=== PATIENT | female | born 1965 | race Caucasian/White ===

== ENCOUNTER 2024-08-31 13:52 | Outpatient (CLI) | payer OTHER, SELFPAY ==
--- NOTE | ~2024-08-31 | DEXA_ITS ---
Bone Density Report Name: JADE CABRERA Age: 59 Sex: Female Ethnicity: White Date of : 1965 Indication: postmenopausal; screening for osteoporosis; height loss; Referring Provider: DENNY, YIFAN Rios Study: Bone densitometry was performed. Exam Date: August 31, 2024 Accession number: [id number] Bone Density: Region BMD T-score Z-score Classification AP Spine(L1-L4) 0.825 -2.0 -0.5 Osteopenia Femoral Neck (Left) 0.537 -2.8 -1.5 Osteoporosis Total Hip (Left) 0.681 -2.1 -1.1 Osteopenia Femoral Neck (Right) 0.567 -2.5 -1.2 Osteoporosis Total Hip (Right) 0.668 -2.2 -1.2 Osteopenia Total Hip Mean 0.675 -2.2 -1.2 Osteopenia World Health Organization criteria for BMD impression classify patients as: Normal (T-score at or above -1.0), Osteopenia (T-score between -1.0 and -2.5), or Osteoporosis (T-score at or below -2.5). 10-year Fracture Risk: FRAX not reported because: Some T-score for Spine Total or Hip Total or Femoral Neck at or below -2.5 Clinical Information Provided by Patient: Smokes Has used the following medications: Vitamin D, Calcium Patient maximum height was 66 Menopause Age: 38 Onset of menses at age 10 Number of children 2 Impression: The patient has osteoporosis, based on the Left Femoral Neck T-score. The patient has risk factors, including: smoking. Discussion: INCREASED RISK OF FRACTURE. BONE DENSITY IS UNDESIRABLY LOW AT ONE OR MORE SKELETAL SITES, CONSISTENT WITH POSTMENOPAUSAL OSTEOPOROSIS. This patient's lowest T-score meets the World Health Organization's (WHO) criteria for osteoporosis at one or more sites (T-score -2.5 or below). In untreated patients, the risk of osteoporotic fracture increases approximately two-fold for each 1.0 SD decrease in T-score. Low bone density is not the only risk factor for fracture; also consider factors such as patient's age, frailty or poor health, risk of falling, risk of injury, previous osteoporotic fracture, family history of osteoporosis, cigarette smoking, low body weight, etc. Not everyone with low bone mineral density has osteoporosis; osteomalacia and other metabolic bone disorders should also be considered. Patients who have osteoporosis should be evaluated for specific diseases and conditions (secondary causes) that may cause or contribute to bone loss. The [place] Association of Clinical Endocrinologists (AACE) and National Osteoporosis Foundation (NOF) recommend pharmacologic intervention for all postmenopausal women whose T-score is in this range. The patient should follow a healthful lifestyle (good nutrition with adequate calcium and vitamin D, and appropriate weight-bearing exercise). Follow-Up: Consider a repeat BMD and Vertebral Fracture Assessment (VFA) exam in 2 years or sooner if medically necessary, to reassess this patient's status. Reported by: MILADIS on 08/31/2024 2:49:00 PM. Reviewed, dictated and finalized at location A.
--- OUTSIDE RECORDS SUMMARY | 2024-08-31 14:06 | XMS_ITS | Clinical Summary ---
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 Ac tive folic acid (FOLVITE) 400 mcg Tablet Take 400 mcg by mouth daily. Active ascorbic acid, vitamin C, (VITAMIN C) 500 mg tablet Take 500 mg by mouth daily. Active vitamin B complex-vitamin C-folic acid 1 mg Capsule Take 1 Capsule by mouth daily. Active fluconazole (DIFLUCAN) 150 mg tablet Take 1 Tablet (150 mg) by mouth daily. 1 Tablet 1 12/28/19 24 Active celecoxib (CeleBREX) 100 mg capsuleIndications :Primary osteoarthritis involving multiple joints Take 1 Capsule (100 mg) by mouth 2 times daily. 60 Capsule 5 02/29/20 24 Active rosuvastatin (CRESTOR) 40 mg tabletIndications: Mixed hyperlipidemia Take 1 Tablet (40 mg) by mouth daily. 90 Tablet 02/29/20 24 Active sertraline (ZOLOFT) 100 mg tabletIndications: Situational depression Take 1 Tablet (100 mg) by mouth daily. 90 Tablet 02/29/20 24 Active methocarbamoL (ROBAXIN) 500 mg tabletIndications: Primary osteoarthritis involving multiple joints Take 1 Tablet (500 mg) by mouth 3 times daily. 30 Tablet 02/29/20 24 Active amLODIPine (NORVASC) 5 mg tabletIndications: Benign hypertension Take 1 Tablet (5 mg) by mouth daily. 90 Tablet 08/22/19 25 Active cetirizine (ZyrTEC) 10 mg tablet Take 1 Tablet (10 mg) by mouth daily. 90 Tablet 08/22/19 25 Active fluticasone propionate (FLONASE) 50 mcg/spray [place], Suspension nasal inhalerIndications :Left ear pain Administer 2 Sprays in each nostril daily. 32 Gram 08/22/19 25 Active doxycycline hyclate (VIBRAMYCIN) 100 mg tabletIndications: Acute non-recurrent maxillary sinusitis Take 1 Tablet (100 mg) by mouth 2 times daily for 10 days. 20 Tablet 08/22/19 25 025 Active fluticasone propionate (FLONASE) 50 mcg/spray [place], Suspension nasal inhalerIndications :Left ear pain,Dizziness Administer 2 Sprays in each nostril daily. 16 Gram 07/18/19 24 025 Discontin ued(Reord er) cetirizine (ZyrTEC) 10 mg tablet Take 1 Tablet (10 mg) by mouth daily. 90 Tablet 12/07/19 24 025 Discontin ued(Reord er) amLODIPine (NORVASC) 5 mg tabletIndications: Benign hypertension Take 1 Tablet (5 mg) by mouth daily. 90 Tablet 05/23/19 25 025 Discontin ued(Reord er) Active Problems Problem Noted Date Diagnosed Date Tobacco dependence 01/18/2024 Benign hypertension 07/18/2023 Mixed hyperlipidemia 07/18/2023 Osteoarthritis 07/18/2023 DDD (degenerative disc disease), cervical 2023 DDD (degenerative disc disease), thoracic 2023 DDD (degenerative disc disease), lumbar 07/18/19 Situational depression 07/18/2023 Encounters Date Type Department Care Team Description 08/21/2024 3:00 PM CDT Office Visit [facility] [address] [place] [address] Suzette Henriquez, FRANCISCO Acute non-recurrent maxillary sinusitis (Primary Dx); Benign hypertension; Left ear pain 07/17/2024 External Device Data STL ABSTRACTION Provider, Abstract 07/04/2024 External Device Data STL ABSTRACTION Provider, Abstract 06/27/2024 External Device Data STL ABSTRACTION Provider, Abstract 06/26/2024 External Device Data STL ABSTRACTION Provider, Abstract 06/25/2024 External Device Data STL ABSTRACTION Provider, Abstract 06/23/2024 External Device Data STL ABSTRACTION Provider, Abstract 06/23/2024 External Device Data STL ABSTRACTION Provider, Abstract 06/20/2024 External Device Data STL ABSTRACTION Provider, Abstract 06/06/2024 External Device Data STL ABSTRACTION Provider, Abstract 06/06/2024 External Device Data STL ABSTRACTION Provider, Abstract from Last 3 Months Family History Medical History Relation Name Comments Other Daughter degenerated dis c disease Leukemia Father Other Mother open heart surg elizabeth complications Other Sister 1 open heart surg elizabeth- aorta Seizures Sister 2 COPD Sister 3 Heart Attack Son Other Son open heart surg elizabeth Relation Name Status Comments Daughter Alive Father Maternal Grandfather Maternal Grandmother Mother Paternal Grandfather Paternal Grandmother Sister 1 Alive Sister 2 Alive Sister 3 Alive Son Alive Social History Tobacco Use Types Packs/Day Years Used Date Smoking Tobacco: Every Day Cigarettes 1 45.4 Started: 04/18/1979 Smokeless Tobacco: Never Tobacco Cessation:Ready to Q uit: No; Counseling Given: Yes Alcohol Use Standard Drinks/Week Comments Yes 6 (1 standard drink = 0.6 oz pur e alcohol) Comments No Sex and Gender Information Value Date Recorded Sex Assigned at Not on file 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 Gender Identity Not on file Sexual Orientation Not on file Last Filed Vital Signs Vital Sign Reading Time Taken Comments Blood Pressure 122/78 08/21/2024 2:55 PM CDT Pulse 80 08/21/2024 2:55 PM CDT Temperature 36.7 C (98.1 F) 08/21/2024 2:55 PM CDT Respiratory Rate 18 08/21/2024 2:55 PM CDT Oxygen Saturation 98% 08/21/2024 2:55 PM CDT Inhaled Oxygen Concentration - - Weight 64.9 kg (143 lb) 08/21/2024 2:55 PM CDT Height 165.1 cm (5' 5 ) 08/21/2024 2:55 PM CDT Body Mass Index 23.8 08/21/2024 2:55 PM CDT Plan of Treatment Upcoming Encounters Date Type Department Care Team (Late st Contact Info) Description 09/18/2024 8:20 AM CDT Office Visit [facility] [place] [address] [address] 09/26/2024 2:00 PM CDT Office Visit [facility] at [facility] [place] [address] [place] [address] Brandi Knott MD [address] [place] [address] Health Maintenance Due Date Last Done Comments DTAP/TDAP/TD VACCINES (1 - Tdap) 1982 HPV/Cotest (21-29) 02/15/1984 CERVICAL CANCER SCREENING 1993 HPV/Cotest (30-65) 1993 PAP SMEAR 1993 BREAST CANCER SCREENING 2003 COLORECTAL SCREENING 02/15/2008 Colorectal Cancer Screening 02/15/2008 FIT-DNA Q 3 years 02/15/2008 FIT/FOBT Q 1 year 02/15/2008 Flex Sig/CT Colonography Q 5 years 02/15/2008 Lung Cancer Screening 2013 ZOSTER VACCINE (1 of 2) 2013 INFLUENZA VACCINE (#1) 2023 Preventative Visit- Commercial 04/18/2024 RSV VACCINE (60+ or ) (1 - 1-dose 75+ series) [address]38 [address] [place] [address] [place] [id number] 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
== END 2024-08-31 13:53 | disposition home or self-care (01) ==
LOC: ANHIMG 14:03
PROVIDERS: PCP Internal Medicine; Visit Provider Internal Medicine
DX: M81.0 Age-related osteoporosis without current pathological fracture (principal); M85.89 Other specified disorders of bone density and structure, multiple sites; Z78.0 Asymptomatic menopausal state; F17.200 Nicotine dependence, unspecified, uncomplicated
CPT/HCPCS: 77080

== ENCOUNTER 2024-12-18 15:52 | Outpatient (CLI) | payer OTHER, SELFPAY ==
--- NOTE | ~2024-12-18 | XR_ITS ---
EXAMINATION: XR foot RT min 3V DATE: 12/18/2024 16:13 INDICATION: Right foot pain TECHNIQUE: Dorsoplantar, oblique and lateral views of the right foot were obtained. COMPARISON: None. FINDINGS: Alignment is normal. No fracture. Mild osteoarthritis at the first metatarsophalangeal and a few tarsometatarsal and interphalangeal joints. Soft tissues are unremarkable. IMPRESSION: 1. No acute osseous abnormality. Reviewed, dictated and finalized at location A.
--- OUTSIDE RECORDS SUMMARY | 2024-12-18 14:30 | XMS_ITS | Encounter Summary ---
Author Organization [facility] Address [address] [place] [address] Care Team Providers Care Curriculum Assistant Name Role Phone Brandi Knott MD Primary Care Provider [phone] Reason for Visit * Reason Comments Foot Injury Patient fell down th e stairs yesterday and hurt foot. Encounter Details Date Type Department Care Team (Late st Contact Info) Description 12/18/2024 2:30 PM CDT Office Visit [facility] [employer] [place] [address] [place] [address] Brandi Knott MD [address] [place] [address] Right foot pain (Primary Dx); Age-related osteoporosis without current pathological fracture Social History Tobacco Use Types Packs/Day Years Used Date Smoking Tobacco: Every Day Cigarettes 1 45.7 Started: 04/18/1979 Smokeless Tobacco: Never Alcohol Use Standard Drinks/Week Comments Yes 6 (1 standard drink = 0.6 oz pur e alcohol) Comments No Sex and Gender Information Value Date Recorded Sex Assigned at Not on file 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 Gender Identity Not on file Sexual Orientation Not on file documented as of this encounter Last Filed Vital Signs Vital Sign Reading Time Taken Comments Blood Pressure 124/82 12/18/2024 2:29 PM CDT Pulse 86 12/18/2024 2:29 PM CDT Temperature - - Respiratory Rate 18 12/18/2024 2:29 PM CDT Oxygen Saturation 95% 12/18/2024 2:29 PM CDT Inhaled Oxygen Concentration - - Weight 64.2 kg (141 lb 9.6 oz) 12/18/2024 2:29 P M CDT Height 162.6 cm (5' 4) 12/18/2024 2:29 PM CDT Body Mass Index 24.31 12/18/2024 2:29 PM CDT documented in this encounter Plan of Treatment Scheduled Orders Name Type Priority Associated Diagnoses Orde r Schedule XR FOOT 3+ VW RIGHT Imaging Routine Right foot pain 1 Occurrences starting 12/18/2024 until 12/18/2025 documented as of this encounter Visit Diagnoses Diagnosis Right foot pain- Primary Pain in limb Age-related osteoporosis without current pathological fracture Senile osteoporosis documented in this encounter Care Teams Curriculum Assistant Relationship Specialty Start Date End Date Brandi Knott MD [address] [place] [address] PCP - General Internal Medicine 09/20/23 documented as of this encounter
--- OUTSIDE RECORDS SUMMARY | 2024-12-18 15:59 | XMS_ITS | Clinical Summary ---
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 Active celecoxib (CeleBREX) 100 mg capsuleIndications :Primary [...] times daily. 30 Tablet 02/29/20 24 Active cetirizine (ZyrTEC) 10 mg tablet Take 1 Tablet (10 mg) by mouth daily. 90 Tablet 08/22/19 25 Active fluticasone propionate (FLONASE) 50 mcg/spray [place], Suspension nasal inhalerIndications :Left ear pain Administer 2 Sprays in each nostril daily. 32 Gram 08/22/19 25 Active alendronate (FOSAMAX) 70 mg tabletIndications: Age-related osteoporosis without current pathological fracture Take 1 Tablet (70 mg) by mouth every 7 days. empty stomach before other meds,with 8oz of water, stay upright 30 min 4 Tablet 2 09/27/19 25 Active Additional Information Patient not taking.Reported on 12/18/2024 sertraline (ZOLOFT) 100 mg tabletIndications: Situational depression Take 1 Tablet (100 mg) by mouth daily. 90 Tablet 11/21/19 25 Active amLODIPine (NORVASC) 5 mg tabletIndications: Benign hypertension Take 1 Tablet (5 mg) by mouth daily. 90 Tablet 11/21/19 25 Active sertraline (ZOLOFT) 100 mg tabletIndications: Situational depression Take 1 Tablet (100 mg) by mouth daily. 90 Tablet 02/29/20 24 025 Discontin ued(Reord er) amLODIPine (NORVASC) 5 mg tabletIndications: Benign hypertension Take 1 Tablet (5 mg) by mouth daily. 90 Tablet 08/22/19 25 025 Discontin ued(Reord er) Active Problems Problem Noted Date Diagnosed Date Elevated glucose 09/24/2024 Age-related osteoporosis wit fortino current pathological fracture 09/07/2024 Overview (09/07/2024): BMD- done 08/2024 Tobacco dependence 01/18/2024 Benign hypertension 07/18/2023 Mixed hyperlipidemia 07/18/2023 Osteoarthritis 07/18/2023 DDD (degenerative disc disease), cervical 2023 DDD (degenerative disc disease), thoracic 2023 DDD (degenerative disc disease), lumbar 07/18/19 Situational depression 07/18/2023 Encounters Date Type Department Care Team Description 12/18/2024 2:30 PM CDT Office Visit [facility] at Work [employer] [place] [address] [place] [address] Brandi Knott MD Right foot pain (Primary Dx); Age-related osteoporosis without current pathological fracture 11/21/2024 1:00 PM CDT Procedure visit [facility] at [facility] [employer] [place] [address] [place] [phone] 11/20/2024 External Device Data [facility] ABSTRACTION Provider, Abstract 11/20/2024 Refill [facility] at [facility] [address] [place] [phone] Suzette Henriquez, FRANCISCO Situational depression; Benign hypertension 11/06/2024 Telephone [facility] at [facility] [address] [place] [phone] Brandi Knott MD Yeast 10/09/2024 External Device Data [place] ABSTRACTION Provider, Abstract 09/28/2024 Results Follow-Up [place] [address] [place] [phone] Brandi Knott MD PTH INTACT, MAGNESIUM LEVEL, PHOSPHORUS, VITAMIN D 25 HYDROXY 09/26/2024 2:00 PM CDT Office Visit [place] [address] [place] [address] Brandi Knott MD Age-related osteoporosis without current pathological fracture (Primary Dx); Tobacco dependence; Low vitamin D level; Mixed hyperlipidemia; Elevated glucose 09/24/2024 Orders Only [facility] at [place] [address] [place] [address] Brandi Knott MD Elevated glucose (Primary Dx); Lymphocytosis; Low vitamin D level 09/20/2024 10:40 AM CDT Office Visit [facility] at [place] [address] [place] [phone] Screening for condition; Mixed hyperlipidemia from Last 3 Months Family History Medical [...] 1 45.7 Started: 04/18/1979 Smokeless Tobacco: Never Tobacco Cessation:Ready to Q uit: No; Counseling Given: Yes Alcohol Use Standard Drinks/Week Comments Yes 6 (1 standard drink = 0.6 oz pur e alcohol) Comments No Sex and Gender Information Value Date Recorded Sex Assigned at Not on file Legal Sex Female 6:29 PM [employer] Gender Identity Not on file Sexual Orientation Not on file Last Filed Vital Signs Vital Sign Reading Time Taken Comments Blood Pressure 124/82 12/18/2024 2:29 PM CDT Pulse 86 12/18/2024 2:29 PM CDT Temperature 36.9 C (98.5 F) 09/26/2024 1:57 PM CDT Respiratory Rate 18 12/18/2024 2:29 PM CDT Oxygen Saturation 95% 12/18/2024 2:29 PM CDT Inhaled Oxygen Concentration - - Weight 64.2 kg (141 lb 9.6 oz) 12/18/2024 2:29 P M CDT Height 162.6 cm (5' 4) 12/18/2024 2:29 PM CDT Body Mass Index 24.31 12/18/2024 2:29 PM CDT Plan of Treatment Health Maintenance Due Date Last Done Comments [...] 2013 ZOSTER VACCINE (1 of 2) 2013 Preventative Visit- Commercial 04/18/2024 INFLUENZA VACCINE (#1) 2024 RSV VACCINE (60+ or ) (1 - 1-dose 75+ series) 2038 Procedures Procedure Name Priority Date/Time Associated Diagnosis Comments HEMOGLOBIN A1C Routine 09/27/2024 7:24 AM CDT Elevated glucose VITAMIN D 25 HYDROXY Routine 09/27/2024 7:24 AM CDT Low vitamin D level PHOSPHORUS Routine 09/26/2024 3:15 PM CDT Age-related osteoporosis without current pathological fracture MAGNESIUM LEVEL Routine 09/26/2024 3:15 PM CDT Age-related osteoporosis without current pathological fracture PTH INTACT Routine 09/26/2024 3:15 PM CDT Age-related osteoporosis without current pathological fracture TSH REFLEXIVE Routine 09/20/2024 10:37 AM CDT Mixed hyperlipidemia CBC WITH DIFFERENTIAL Routine 09/20/2024 10:37 AM CDT Screening for condition COMPREHENSIVE METABOLIC PANEL Routine 09/20/2024 10:37 AM CDT Screening for condition LIPID PANEL Routine 09/20/2024 10:37 AM CDT Screening for condition TSH Routine 09/20/2024 10:37 AM CDT Screening for condition from Last 3 Months Results * VITAMIN D 25 HYDROXY (09/27/2024 7:24 AM CDT) [facility] VITAMIN D, 25 OH, TOTAL 39 30 - 100 ng/mL [facility] Comment: Vitamin D Status 25-OH Vitamin D: Deficiency: <20 ng/mL Insufficiency: 20 - 29 ng/mL Optimal: > or = 30 ng/mL For 25-OH Vitamin D testing on patients on D2-supplementation and patients for whom quantitation of D2 and D3 fractions is required, the BilleoureD() 25-OH VIT D, (D2,D3), LC/MS/MS is recommended: order code 91054 (patients >2yrs). See Note 1 Note 1 For additional information, please refer to http://education.Lailaihui.RadPad/faq/YSK385 (This link is being provided for informational/ educational purposes only.) Test Performed at: [facility] [id number] [place], [place] [address] Anshul Tubbs MD Blood 09/27/2024 7:24 AM CDT 09/28/2024 5:33 AM CDT us Brandi Knott MD CHEMISTRY ORDERABLES Final Res ult Performing Organization Address [facility]/ZIP Co de Phone Number [facility] [phone] [facility] [address] * HEMOGLOBIN A1C (09/27/2024 7:24 AM CDT) HEMOGLOBIN A1C TNP % [facility] Comment: TEST NOT PERFORMED No lavender-top tube received. Test Performed at: [facility] [address] [place] [phone] Anshul Tubbs MD Blood 09/27/2024 7:24 AM CDT 09/28/2024 5:33 AM CDT us Brandi Knott MD CHEMISTRY ORDERABLES Final Res ult Performing Organization Address [facility] de Phone Number [facility] [phone] [facility] [address] [place] [phone] * (ABNORMAL) PHOSPHORUS (09/26/2024 3:15 PM CDT) PHOSPHORUS 4.9(H) 2.5 - 4.5 mg/dL [facility] Comment: Test Performed at: [facility] [address] [place] [address] Anshul Tubbs MD Blood 09/26/2024 3:15 PM CDT 09/28/2024 4:48 AM CDT us Brandi Knott MD CHEMISTRY ORDERABLES Final Res ult Performing Organization Address City/[facility] Co de Phone Number [facility] [phone] [facility] [address] [place] [address] * PTH INTACT (09/26/2024 3:15 PM CDT) Pathologist [facility] PTH INTACT 44 16 - 77 pg/mL [facility] Comment: Interpretive Guide Intact PTH Calcium ------- Normal Parathyroid Normal Normal Hypoparathyroidism Low or Low Normal Low Hyperparathyroidism Primary Normal or High High Secondary High Normal or Low Tertiary High High Non-Parathyroid Hypercalcemia Low or Low Normal High Test Performed at: [facility] [address] Anshul Tubbs MD Blood 09/26/2024 3:15 PM CDT 09/28/2024 4:48 AM CDT us Brandi Knott MD CHEMISTRY ORDERABLES Final Res ult Performing Organization Address City/[facility]/ZIP Co de Phone Number [facility] [phone] [facility] [address] [place] [address] * MAGNESIUM LEVEL (09/26/2024 3:15 PM CDT) Pathologist [facility] MAGNESIUM 2.1 1.5 - 2.5 mg/dL [facility] Comment: Test Performed at: [facility] [address] Anshul Tubbs MD Blood 09/26/2024 3:15 PM CDT 09/28/2024 4:48 AM CDT us Brandi Knott MD CHEMISTRY ORDERABLES Final Res ult [facility] [phone] [facility] [address] [place] [address] * TSH REFLEXIVE (09/20/2024 10:37 AM CDT) Pathologist [facility] TSH 2.94 0.40 - 4.50 mIU/L [facility] Comment: Test Performed at: [facility] [address] [place] [address] Anshul Tubbs MD Blood 09/20/2024 10:3 7 AM CDT 09/21/2024 7:38 AM CDT us Brandi Knott MD CHEMISTRY ORDERABLES Final Res ult [facility] [phone] [facility] [address] [facility] [place] [address] * (ABNORMAL) CBC WITH DIFFERENTIAL (09/20/2024 10:37 AM CDT) [facility] WBC 8.8 3.8 - 10.8 Thousand/u L [facility] RBC 4.64 3.80 - 5.10 Million/uL [facility] HEMOGLOBIN 14.4 11.7 - 15.5 g/dL [facility] HEMATOCRIT 44.6 35.0 - 45.0 % [facility] MCV 96.1 80.0 - 100.0 fL [facility] MCH 31.0 27.0 - 33.0 pg [facility] MCHC 32.3 32.0 - 36.0 g/dL [facility] Comment: For adults, a slight decrease in the calculated MCHC value (in the range of 30 to 32 g/dL) is most likely not clinically significant; however, it should be interpreted with caution in correlation with other red cell parameters and the patient's clinical condition. RDW 13.0 11.0 - 15.0 % [facility] PLATELETS 351 140 - 400 Thousand/u L [facility] MPV 9.3 7.5 - 12.5 fL [facility] NEUTROPHIL ABSOLUTE 3,467 1,500 - 7,800 cells/uL [facility] LYMPHOCYTE ABSOLUTE 4,268(H) 850 - 3,900 cells/uL [facility] MONOCYTE ABSOLUTE 686 200 - 950 cells/uL [facility] EOSINOPHIL ABSOLUTE 299 15 - 500 cells/uL [facility] BASOPHILS ABSOLUTE 79 0 - 200 cells/uL [facility] NEUTROPHIL 39.4 % [facility] LYMPHOCYTES 48.5 % [facility] MONOCYTE 7.8 % [facility] EOSINOPHILS 3.4 % [facility] BASOPHILS 0.9 % [facility] Comment: Test Performed at: [facility] [address] Anshul Tubbs MD Blood 09/20/2024 10:3 7 AM CDT 09/21/2024 7:37 AM CDT us Brandi Knott MD HEMATOLOGY ORDERABLES Final Re sult Performing Organization Address City/[facility]/ZIP Co de Phone Number [facility] [phone] [facility] [address] * TSH (09/20/2024 10:37 AM CDT) Pathologist [facility] TSH 2.66 0.40 - 4.50 mIU/L [facility] Comment: Test Performed at: [facility] [address] Anshul Tubbs MD Blood 09/20/2024 10:3 7 AM CDT 09/21/2024 7:37 AM CDT us Brandi Knott MD CHEMISTRY ORDERABLES Final Res ult [facility] [phone] [facility] [address] * (ABNORMAL) LIPID PANEL (09/20/2024 10:37 AM CDT) CHOLESTEROL 284(H) <200 mg/dL [facility] HDL 58 > OR = 50 mg/dL [facility] TRIGLYCERIDE 475(H) <150 mg/dL [facility] Comment: If a non-fasting specimen was collected, consider repeat triglyceride testing on a fasting specimen if clinically indicated. Elgin et al. J. of Clin. Lipidol. 2015;9:129-169. LDL CALCULATED mg/dL (calc) [facility] Comment: LDL cholesterol not calculated. Triglyceride levels greater than 400 mg/dL invalidate calculated LDL results. Reference range: <100 Desirable range <100 mg/dL for primary prevention; <70 mg/dL for patients with CHD or diabetic patients with > or = 2 CHD risk factors. LDL-C is now calculated using the Ramirez-Iron calculation, which is a validated novel method providing better accuracy than the Friedewald equation in the estimation of LDL-C. Ramirez FRANCOIS et al. ELIN. 2013;310(19): 8920-1339 (http://education.Clinipace WorldWide/faq/ADF354) CHOL/HDL RATIO 4.9 <5.0 (calc) [facility] NON-HDL CHOLESTEROL 226(H) <130 mg/dL (calc) [facility] Comment: Non-HDL level > or = 220 is very high and may indicate genetic familial hypercholesterolemia (FH). Clinical assessment and measurement of blood lipid levels should be considered for all first-degree relatives of patients with an FH diagnosis. For patients with diabetes plus 1 major ASCVD risk factor, treating to a non-HDL-C goal of <100 mg/dL (LDL-C of <70 mg/dL) is considered a therapeutic option. Test Performed at: [facility] [address] [place] [id number] Anshul Tubbs MD Blood 09/20/2024 10:3 7 AM CDT 09/21/2024 7:37 AM CDT us Brandi Knott MD CHEMISTRY ORDERABLES Final Res ult [facility] [phone] [facility] [address] [place] [address] * (ABNORMAL) COMPREHENSIVE METABOLIC PANEL (09/20/2024 10:37 AM CDT) GLUCOSE 107(H) 65 - 99 mg/dL [facility] Comment: Fasting reference interval For someone without known diabetes, a glucose value between 100 and 125 mg/dL is consistent with prediabetes and should be confirmed with a follow-up test. BUN 12 7 - 25 mg/dL [facility] CREATININE 0.68 0.50 - 1.05 mg/dL [facility] GFR 99 > OR = 60 mL/min/1. 73m2 [facility] BUN/CREAT RATIO SEE NOTE: 6 - 22 (calc) [facility] Comment: Not Reported: BUN and Creatinine are within reference range. SODIUM 138 135 - 146 mmol/L [facility] POTASSIUM 4.2 3.5 - 5.3 mmol/L [facility] CHLORIDE 101 98 - 110 mmol/L [facility] CO2 25 20 - 32 mmol/L [facility] CALCIUM 9.8 8.6 - 10.4 mg/dL [facility] TOTAL PROTEIN 7.1 6.1 - 8.1 g/dL [facility] ALBUMIN 4.4 3.6 - 5.1 g/dL [facility] GLOBULIN 2.7 1.9 - 3.7 g/dL (calc) [facility] ALBUMIN/GLOBULIN RATIO 1.6 1.0 - 2.5 (calc) [facility] BILIRUBIN TOTAL 0.6 0.2 - 1.2 mg/dL [facility] ALKALINE PHOSPHATASE 87 37 - 153 U/L [facility] AST 23 10 - 35 U/L [facility] ALT 22 6 - 29 U/L [facility] Comment: Test Performed at: [facility] [address] [facility] [place] [place] [address] Anshul Tubbs MD Blood 09/20/2024 10:3 7 AM CDT 09/21/2024 7:37 AM CDT us Brandi Knott MD CHEMISTRY ORDERABLES Final Res ult [facility] [phone] [facility] [address], [place] [address] from Last 3 Months Insurance [employer] [facility] Care Teams Wheat Combine Driver Relationship Specialty Start Date End Date Brandi Knott MD [address] [place] [address] [place] [address] PCP - General Internal Medicine 09/20/23
== END 2024-12-18 15:53 | disposition home or self-care (01) ==
PROVIDERS: PCP Internal Medicine; Visit Provider Internal Medicine
DX: M79.671 Pain in right foot (principal)
CPT/HCPCS: 73630